=== PATIENT | male | born 1995 | race Two or more races ===

== ENCOUNTER 2024-03-12 08:00 | Day surgery (SDC) | payer MEDICAID, SELFPAY ==
[2024-03-10 09:38] VITALS: BMI 31.3
[2024-03-10 11:17] LABS: Alanine Aminotransferase 80 U/L (10-49); Albumin, Serum 5.1 gm/dL (3.5-5.0); Alkaline Phosphatase 97 U/L (46-116); Anion Gap 7 (7-16); Aspartate Amino Transferase 28 U/L (0-34); BUN/Creatinine Ratio 13 Ratio (12-20); Bilirubin,Total 0.3 mg/dL (0.3-1.2); Blood Urea Nitrogen 10 mg/dL (9-23); Carbon Dioxide 30.3 mMol/L (20.0-31.0); Chloride 101 mMol/L (98-107); Creatinine (Component) 0.8 mg/dL (0.6-1.3); Estimated Creatinine Clearance 135.6 mL/min (>60); Globulin 2.6 gm/dL (2.3-3.5); Glucose 101 mg/dL (74-106); Osmolality,Calculated 274 (275-295); Potassium 4.2 mMol/L (3.4-5.1); Sodium 138 mMol/L (136-145); Total Protein 7.7 gm/dL (5.7-8.2); eGFR > 60 See Note
[2024-03-10 11:29] LABS: INR 0.9 (0.9-1.3); Partial Thromboplastin Time 26.1 Seconds (22.0-36.0); Prothrombin Time 10.1 Seconds (9.0-12.2)
[2024-03-10 11:35] LABS: Basophils # (Auto) 0.1 Thou/mm3 (0.0-0.2); Basophils % (Auto) 1 % (0-2.5); Eosinophils # (Auto) 0.1 Thou/mm3 (0.0-0.5); Eosinophils % (Auto) 1 % (0-10); Hematocrit 49.9 % (41.0-53.0); Hemoglobin 16.7 g/dL (13.5-16.0); Immature Granulocytes % (Auto) 1 % (0-0); Lymphocytes # (Auto) 2.3 Thou/mm3 (1.0-4.8); Lymphocytes % (Auto) 33 % (10-50); Mean Corpuscular HGB Conc 33.5 g/dl (31.0-37.0); Mean Corpuscular Hemoglobin 29.9 pg (25.0-35.0); Mean Corpuscular Volume 89 fL (80-100); Monocytes # (Auto) 0.5 Thou/mm3 (0.0-0.8); Monocytes % (Auto) 7 % (0-12); Neutrophils # (Auto) 3.9 Thou/mm3 (1.8-7.7); Neutrophils % (Auto) 57 % (37-80); Nucleated Red Blood Cell % 0 /100 WBC (0); Platelet Count 394 Thou/mm3 (140-440); RDW Standard Deviation 41.1 fL (35.1-43.9); Red Blood Count 5.59 Miln/mm3 (4.50-5.90)
[2024-03-12] VITALS (9 sets, daily range): BP systolic 104–159; BP diastolic 61–97; PULSE 77–92; RESP 15–19; TEMP 36.2–36.6; O2SAT 96–98; BMI 31.0
[2024-03-12] MEDS: RINGERS LACTATED 1000 ML 1,000 ML 20 ML IV (08:46)
--- NOTE | 2024-03-12 11:56 | ESOP_ITS ---
Date of Procedure 03/12/24 Pre Op Diagnosis Symptomatic left inguinal hernia Post Op Diagnosis Same, direct inguinal hernia Procedure Repair of the left direct inguinal hernia with placement of 2.5 inch Ventralex mesh in the preperitoneal space and 2 x 4 Marlex mesh onlay patch Findings Patient was found to have indirect hernia which manifested as a bulging in the transversalis fascia in the hasselbach Striegel. There were no indirect sac Procedure Description After the patient was given general anesthesia patient was placed in supine position. Lower abdomen was prepped with ChloraPrep solution and draped in a sterile manner. Then the [left] inguinal incision was made for about [7 cm] in length. External oblique was incised and the cord structures were encircled and(. The patient was found to have no indirect sac and it was obvious that the patient had a large direct inguinal hernia because of the bulging medial to the cord structures in the transversalis fascia over hasselbach triangle The cord structures were encircled around a Tsering drain. The floor of the inguinal canal was reconstructed as follows: I made an incision in the transversalis fascia which was thin and attenuated. The preperitoneal fat was entered and the used 3 4 x 4's to create a space to place the modified Ventralex ST mesh measuring 2.5 inches in diameter. After the mesh was placed in the superior strap was attached to the internal oblique with a 2-0 Prolene. The inferior strap was attached to the shelving edge of the inguinal ligament. The sponge count was made to confirm that all of them were removed before the mesh was placed in place. At the end of the floor of the inguinal canal appeared to be strong and without any weakness. Then I placed an onlay mesh over the floor and attached it medially to the pubic tubercle with a 2-0 Prolene suture. Laterally it was encircling the cord structures after making a hole in the mesh. The tails of the mesh was tucked underneath the external oblique. After checking for any bleeding point the external oblique was closed with a running 2-0 Vicryl. Subcutaneous tissues was closed with 3`0 plain and I injected half percent Marcaine with epinephrine for analgesia. The subcuticular approximation was performed with 4-0 Monocryl. Dressing was applied with Adaptic and 4 x 4 and the patient tolerated the procedure well and was returned to recovery room in stable condition. Anesthesia [employer] Implants One 2.5 inch Ventralex mesh, number two 2 x 4 onlay Marlex mesh Pathology / specimen None IVF Infused 500 Estimated Blood Loss 10 Surgeon Yoni Barth MD Surgical Staff Operation Date: 03/12/24 10:00 Case Staff SPECIAL EVENTS FUNDRAISER: Ian Corley RN First Assistant: Alla Parker
--- NOTE | 2024-03-12 12:02 | SUR.PHASEI ---
pt arrived to PACU via gurney with oral airway present, dressing to left inguinal region clean, dry, and intact, report from Adryan CELIS and Dr Corley
--- NOTE | 2024-03-12 12:18 | SUR.PHASEI ---
report to Kari Lara RN
--- NOTE | 2024-03-12 12:18 | SUR.PHASEI ---
1218 Report received from Kari Simon RN
--- NOTE | 2024-03-12 13:16 | SUR.PHASEII ---
1316 Patient meets discharge criteria from recovery, awake and alert, breathing unlabored, vital signs stable, denies pain states, It's just sore when I move , dressing intact; no bleeding noted, patient eating apple sauce and drinking cranberry juice; tolerating well, denies nausea, patient assisted with dressing into his clothing by his fiance, discharge instructions given to patient and patients fiance; fiance signed discharge instructions. Patient given all his belongings prior, transported via wheelchair and left in a private vehicle.
== END 2024-03-12 13:16 | disposition home or self-care (01) ==
PROVIDERS: PCP Internal Medicine; Referring Provider Surgery; Visit Provider Surgery
PROC: (CPT 49505; principal; 2024-03-12 10:00)
DX: K40.90 Unilateral inguinal hernia, without obstruction or gangrene, not specified as recurrent (principal)
CPT/HCPCS: 49505; 36415; 80053; 85025; 85610; 85730; A4217; A4649; C1781; J1100; J2250; J2405; J2704; J3010; J3490; J7120